=== PATIENT | male | born 1995 | race Caucasian/White ===

== ENCOUNTER → 2017-04-28 | Outpatient (CLI) | payer BC, OTHER | LOC: HYPER 06:59 | DX: L89.613 Pressure ulcer of right heel, stage 3 (principal); L89.622 Pressure ulcer of left heel, stage 2; S01.80XA Unspecified open wound of other part of head, initial encounter; Z72.89 Other problems related to lifestyle; X58.XXXA Exposure to other specified factors, initial encounter; Y93.89 Activity, other specified; Y92.89 Other specified places as the place of occurrence of the external cause; Y99.8 Other external cause status ==

== ENCOUNTER → 2017-05-24 | Outpatient (CLI) | payer BC, OTHER | LOC: HYPER 05-19 14:13 | DX: L89.613 Pressure ulcer of right heel, stage 3 (principal); L89.622 Pressure ulcer of left heel, stage 2; S01.00XD Unspecified open wound of scalp, subsequent encounter; F41.9 Anxiety disorder, unspecified; Z72.89 Other problems related to lifestyle; X58.XXXD Exposure to other specified factors, subsequent encounter ==

== ENCOUNTER → 2018-11-02 | Outpatient (CLI) | payer BC, OTHER ==
[~2018-11-02] VITALS: Ht 177.8 cm; Wt 90.7 kg
[~2018-11-02] MED LIST: CYMBALTA30 MG PO; DICLOFENAC SODI75 MG PO; IBUPROFEN 200200 M1 PO; LYRICA 50 MG50 MG PO; NORCO 10-325 T1 EACH PO; OXYCODONE-ACET1 EACH PO
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
[2018-11-02 08:47] VITALS: BP 141/78
== END ==
LOC: PAIN 07:59
DX: M54.5 Low back pain (principal); G62.9 Polyneuropathy, unspecified; G89.29 Other chronic pain; V89.2XXA Person injured in unspecified motor-vehicle accident, traffic, initial encounter; Z79.899 Other long term (current) drug therapy

== ENCOUNTER → 2018-11-16 | Outpatient (CLI) | payer BC, OTHER ==
[~2018-11-16] VITALS: Ht 177.8 cm; Wt 90.7 kg
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
[2018-11-16 14:53] VITALS: BP 131/96
--- NOTE | 2018-11-16 15:07 | NUR ---
Pain Clinic Assessment: 1. History of Osteoarthritis: History of Rheumatoid Arthritis: 2. Height: 5 ft. 10 in. 177.8 cm. Weight: 200.0 lb. oz. 90.720 kg. Patient's BMI: 28.7 3. Vital Signs: BP: 131/96 Pulse: 101 Resp: 16 Temp: 02 Sat: 99 ECG Mon: 4. Pain Intensity: 3 5. Fall Risk: Dizziness: N Needs help standing or walking: N Fallen in the last 3 months: N Fall risk comments: 6. Patient on Blood Thinner: None 7. History of Hypertension: N 8. Opioid Therapy greater than 6 weeks: Y Opiate Contract Signed: 11/02/18 9. Risk Assessment Tool Provided: 10. Functional Assessment Tool: 11. Recreational Drug Use: Never Drug Type: Tobacco Use: Never Smoker Tobacco Type: Amount or Packs/day: How Many Years: Alcohol Use: Yes Frequency: Quant:
== END ==
LOC: PAIN 08:20
DX: M54.16 Radiculopathy, lumbar region (principal); G62.9 Polyneuropathy, unspecified; M25.551 Pain in right hip; V89.2XXA Person injured in unspecified motor-vehicle accident, traffic, initial encounter; Z79.899 Other long term (current) drug therapy

== ENCOUNTER → 2019-01-11 | Outpatient (CLI) | payer BC, OTHER ==
[~2019-01-11] VITALS: Ht 177.8 cm; Wt 91.6 kg
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
[2019-01-11 11:04] VITALS: BP 132/69
--- NOTE | 2019-01-11 11:22 | NUR ---
Pain Clinic Assessment: 1. History of Osteoarthritis: Not Applicable History of Rheumatoid Arthritis: Not Applicable 2. Height: 5 ft. 10 in. 177.8 cm. Weight: 202.0 lb. oz. 91.627 kg. Patient's BMI: 29.0 3. Vital Signs: BP: 132/69 Pulse: 80 Resp: 16 Temp: 02 Sat: 99 ECG Mon: 4. Pain Intensity: 4 5. Fall Risk: Dizziness: N Needs help standing or walking: N Fallen in the last 3 months: N Fall risk comments: 6. Patient on Blood Thinner: None 7. History of Hypertension: N 8. Opioid Therapy greater than 6 weeks: Y Opiate Contract Signed: 11/02/18 9. Risk Assessment Tool Provided: 10. Functional Assessment Tool: 11. Recreational Drug Use: Never Drug Type: Tobacco Use: Never Smoker Tobacco Type: Amount or Packs/day: How Many Years: Alcohol Use: Yes Frequency: Weekly Quant: 2
== END ==
LOC: PAIN 07:23
DX: M54.5 Low back pain (principal); G89.29 Other chronic pain; G62.9 Polyneuropathy, unspecified; V89.2XXA Person injured in unspecified motor-vehicle accident, traffic, initial encounter; Z79.899 Other long term (current) drug therapy

== ENCOUNTER → 2019-03-08 | Outpatient (CLI) | payer BC, OTHER ==
[~2019-03-08] VITALS: Ht 177.8 cm; Wt 90.4 kg
[2019-03-08 08:47] VITALS: BP 149/98
--- NOTE | 2019-03-08 08:58 | NUR ---
Pain Clinic Assessment: 1. History of Osteoarthritis: Not Applicable History of Rheumatoid Arthritis: Not Applicable 2. Height: 5 ft. 10 in. 177.8 cm. Weight: 199.2 lb. oz. 90.357 kg. Patient's BMI: 28.6 3. Vital Signs: BP: 149/98 Pulse: 91 Resp: 18 Temp: 02 Sat: 100 ECG Mon: 4. Pain Intensity: 3-4 5. Fall Risk: Dizziness: N Needs help standing or walking: N Fallen in the last 3 months: N Fall risk comments: 6. Patient on Blood Thinner: None 7. History of Hypertension: N 8. Opioid Therapy greater than 6 weeks: Y Opiate Contract Signed: 11/02/18 9. Risk Assessment Tool Provided: 10. Functional Assessment Tool: 11. Recreational Drug Use: Never Drug Type: Tobacco Use: Never Smoker Tobacco Type: Amount or Packs/day: How Many Years: Alcohol Use: Yes Frequency: Weekly Quant: 1-2
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
== END ==
LOC: PAIN 06:52
DX: G89.29 Other chronic pain (principal); M54.5 Low back pain; G62.9 Polyneuropathy, unspecified; Z88.8 Allergy status to other drugs, medicaments and biological substances; Z79.899 Other long term (current) drug therapy; Z79.891 Long term (current) use of opiate analgesic; V89.2XXD Person injured in unspecified motor-vehicle accident, traffic, subsequent encounter

== ENCOUNTER → 2019-05-02 | Outpatient (CLI) | payer BC, OTHER ==
[~2019-05-02] VITALS: Ht 177.8 cm; Wt 91.9 kg
[2019-05-02 13:46] VITALS: BP 138/80
--- NOTE | 2019-05-02 13:52 | NUR ---
Pain Clinic Assessment: 1. History of Osteoarthritis: Not Applicable History of Rheumatoid Arthritis: Not Applicable 2. Height: 5 ft. 10 in. 177.8 cm. Weight: 202.6 lb. oz. 91.899 kg. Patient's BMI: 29.1 3. Vital Signs: BP: 138/80 Pulse: 83 Resp: 14 Temp: 02 Sat: 98 ECG Mon: 4. Pain Intensity: 4-5 5. Fall Risk: Dizziness: N Needs help standing or walking: N Fallen in the last 3 months: N Fall risk comments: 6. Patient on Blood Thinner: None 7. History of Hypertension: N 8. Opioid Therapy greater than 6 weeks: Y Opiate Contract Signed: 11/02/18 9. Risk Assessment Tool Provided: low 10. Functional Assessment Tool: 11. Recreational Drug Use: Never Drug Type: Tobacco Use: Never Smoker Tobacco Type: Amount or Packs/day: How Many Years: Alcohol Use: Yes Frequency: Weekly Quant: 1-2
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
== END ==
LOC: PAIN 06:54
DX: M54.5 Low back pain (principal); G89.29 Other chronic pain; G62.9 Polyneuropathy, unspecified; Z79.899 Other long term (current) drug therapy

== ENCOUNTER → 2019-05-31 | Outpatient (CLI) | payer BC, OTHER ==
[~2019-05-31] VITALS: Ht 177.8 cm; Wt 0.6 kg
[2019-05-31 08:47] VITALS: BP 130/90
--- NOTE | 2019-05-31 08:50 | NUR ---
Pain Clinic Assessment: 1. History of Osteoarthritis: Not Applicable History of Rheumatoid Arthritis: Not Applicable 2. Height: 5 ft. 10 in. 177.8 cm. Weight: lb. 20 oz. 0.567 kg. Patient's BMI: 0.2 3. Vital Signs: BP: 130/90 Pulse: 82 Resp: 16 Temp: 02 Sat: 100 ECG Mon: 4. Pain Intensity: 3-4 5. Fall Risk: Dizziness: N Needs help standing or walking: N Fallen in the last 3 months: N Fall risk comments: 6. Patient on Blood Thinner: None 7. History of Hypertension: N 8. Opioid Therapy greater than 6 weeks: Y Opiate Contract Signed: 11/02/18 9. Risk Assessment Tool Provided: low 10. Functional Assessment Tool: 11. Recreational Drug Use: Never Drug Type: Tobacco Use: Never Smoker Tobacco Type: Amount or Packs/day: How Many Years: Alcohol Use: Yes Frequency: Weekly Quant: 1-2 glasses wine
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
== END ==
LOC: PAIN 08:08
DX: G62.9 Polyneuropathy, unspecified (principal); M54.5 Low back pain; V89.2XXD Person injured in unspecified motor-vehicle accident, traffic, subsequent encounter; Z79.899 Other long term (current) drug therapy

== ENCOUNTER → 2019-08-16 | Outpatient (CLI) | payer BC, OTHER ==
[~2019-08-16] VITALS: Ht 177.8 cm; Wt 93.4 kg
[2019-08-16 12:38] VITALS: BP 151/87
--- NOTE | 2019-08-16 12:44 | NUR ---
Pain Clinic Assessment: 1. History of Osteoarthritis: Not Applicable History of Rheumatoid Arthritis: Not Applicable 2. Height: 5 ft. 10 in. 177.8 cm. Weight: 206.0 lb. oz. 93.441 kg. Patient's BMI: 29.6 3. Vital Signs: BP: 151/87 Pulse: 70 Resp: 14 Temp: 02 Sat: 100 ECG Mon: 4. Pain Intensity: 5 5. Fall Risk: Dizziness: N Needs help standing or walking: N Fallen in the last 3 months: N Fall risk comments: 6. Patient on Blood Thinner: None 7. History of Hypertension: N 8. Opioid Therapy greater than 6 weeks: N Opiate Contract Signed: 11/02/18 9. Risk Assessment Tool Provided: low 10. Functional Assessment Tool: 11. Recreational Drug Use: Never Drug Type: Tobacco Use: Never Smoker Tobacco Type: Amount or Packs/day: How Many Years: Alcohol Use: Yes Frequency: Special Occasions Quant:
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
== END ==
LOC: PAIN 06:55
DX: M54.5 Low back pain (principal); G62.9 Polyneuropathy, unspecified; F32.9 Major depressive disorder, single episode, unspecified

== ENCOUNTER → 2019-09-24 | Outpatient (CLI) | payer BC, OTHER ==
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
[2019-09-24 16:05] VITALS: BP 149/98
--- NOTE | 2019-09-24 16:13 | NUR ---
Pain Clinic Assessment: 1. History of Osteoarthritis: Not Applicable History of Rheumatoid Arthritis: Not Applicable 2. Height: 5 ft. 10 in. 152.4 cm. Weight: lb. oz. kg. Patient's BMI: 3. Vital Signs: BP: 149/98 Pulse: 97 Resp: 16 Temp: 02 Sat: 100 ECG Mon: 4. Pain Intensity: 5 5. Fall Risk: Dizziness: N Needs help standing or walking: N Fallen in the last 3 months: N Fall risk comments: 6. Patient on Blood Thinner: None 7. History of Hypertension: N 8. Opioid Therapy greater than 6 weeks: N Opiate Contract Signed: 11/02/18 9. Risk Assessment Tool Provided: low 10. Functional Assessment Tool: 11. Recreational Drug Use: Current within past 3 mos Drug Type: MARIJUANA Tobacco Use: Never Smoker Tobacco Type: Amount or Packs/day: How Many Years: Alcohol Use: Yes Frequency: Quant:
== END ==
LOC: PAIN 09-13 07:05
DX: G89.4 Chronic pain syndrome (principal); F32.9 Major depressive disorder, single episode, unspecified; Z79.891 Long term (current) use of opiate analgesic; Z79.899 Other long term (current) drug therapy